=== PATIENT | male | born 1945 | race African-American/Black ===

== ENCOUNTER 2017-06-30 10:58 | Inpatient (IN) ==
[2017-06-30] MEDS ORDERED: ALBUTEROL 2.5 MG/3 ML NEB RESP TX PRN (15:12)
[2017-06-30] MEDS ORDERED: POTASSIUM IODIDE ORAL SOLN 1,000 MG/ML BOTTLE PO SCH (17:00)
[2017-06-30] MEDS ORDERED: POLYVINYL ALCOHOL 1.4% OPH SOLN 15 ML BOTTLE BOTH EYES PRN (17:01)
[2017-06-30] MEDS ORDERED: ACETAMINOPHEN 325 MG TABLET PO PRN (17:08)
[2017-06-30] MEDS: hydroCHLOROthiazide 25 MG TABLET PO SCH (19:13)
[2017-06-30] MEDS: LEVOTHYROXINE 50 MCG TABLET PO SCH (20:27)
[2017-06-30] MEDS ORDERED: RIVAROXABAN 20 MG TABLET PO SCH (21:00)
[2017-06-30] MEDS ORDERED: MAGNESIUM OXIDE 400 MG TABLET PO SCH (21:00)
[2017-06-30] MEDS ORDERED: PRAVASTATIN 20 MG TABLET PO SCH (21:00)
[2017-07-01] MEDS: LEVOTHYROXINE 50 MCG TABLET PO SCH (06:34)
[2017-07-01] MEDS: hydroCHLOROthiazide 25 MG TABLET PO SCH ×2 (09:00→09:05)
[2017-07-01] MEDS ORDERED: amLODIPine 10 MG TABLET PO SCH (09:00)
[2017-07-01] MEDS ORDERED: ASPIRIN 325 MG TABLET PO SCH (09:00)
[2017-07-01] MEDS ORDERED: POTASSIUM CHLORIDE 20 MEQ TABLET PO SCH (09:00)
[2017-07-01 12:34] VITALS: BP 141/88
== END 2017-07-01 13:08 | DRG 206 ==
LOC: N.CC 13:00
PROVIDERS: ADMIT Otolaryngology; ATTEND Otolaryngology

== ENCOUNTER 2017-10-19 19:17 | Inpatient (IN) ==
[2017-10-19] MEDS ORDERED: ACETAMINOPHEN 325 MG TABLET PO PRN (23:11)
[2017-10-19] MEDS ORDERED: traZODone 50 MG TABLET PO PRN (23:11)
[2017-10-19] MEDS ORDERED: LACTULOSE 20 GM/30 ML UDCUP PO PRN (23:11)
[2017-10-19] MEDS ORDERED: DOCUSATE SODIUM 100 MG CAPSULE PO PRN (23:11)
[2017-10-19] MEDS ORDERED: BISACODYL 5 MG TABLET PO PRN (23:11)
[2017-10-19] MEDS ORDERED: ONDANSETRON 4 MG/2 ML VIAL IV PRN (23:11)
[2017-10-19] MEDS ORDERED: traZODone 50 MG TABLET PO SCH (23:45)
[2017-10-20 02:29] LABS: Basophils % 0.5 % (0.0-0.8); Eosinophils # 0.2 10*3/uL (0.0-0.87); Eosinophils % 2.8 % (0.00-10.9); Hematocrit 39.1 VOL% (42.0-52.0); Hemoglobin 12.9 GM/DL (14.0-18.0); Immature Granulocytes % 0.3 %; Immature Granulocytes Absolute 0.02 #; Lymphocytes # 1.8 10*3/uL (1.4-4.0); Lymphocytes % 22.8 % (21.2-54.2); Mean Corpuscular Hemoglobin 27 PG (27-34); Mean Corpuscular Volume 82.5 FL (87-102); Mean Platelet Volume 8.9 FL (9.6-12.0); Monocytes # 0.8 10*3/uL (0.11-0.8); Monocytes % 9.9 % (1.7-12.7); Neutrophils # 4.9 10*3/uL (1.4-7.4); Neutrophils % 63.7 % (38.7-73.9); Platelet Count 197 T/CUMM (130-400); Red Blood Count 4.74 MC/CUMM (3.8-5.5); Red Cell Distribution Width 14.6 % (9.3-17.3); White Blood Count 7.8 T/CUMM (4-12)
[2017-10-20 03:03] LABS: Calcium 8.2 MG/DL (8.5-10.1); Osmolality,Calculated 286.8 MOS/KG (273-304); Potassium 3.7 MMOL/L (3.5-5.1)
[2017-10-20] MEDS ORDERED: hydroCHLOROthiazide 25 MG TABLET PO SCH (09:00)
[2017-10-20] MEDS ORDERED: guaiFENesin/DM ER 600-30 MG TABLET PO SCH (09:00)
[2017-10-20] MEDS ORDERED: ESCITALOPRAM 10 MG TABLET PO SCH (09:00)
[2017-10-20] MEDS ORDERED: LEVOFLOXACIN INJ 500 MG in PREMIX 1 EACH IV SCH (10:00)
[2017-10-20 15:49] VITALS: BP 146/89
== END 2017-10-20 16:25 | DRG 311 ==
LOC: N.5E 21:36
PROVIDERS: ADMIT Internal Medicine; ATTEND Internal Medicine